=== PATIENT | female | born 1990 | race Two or more races ===

== ENCOUNTER 2016-06-07 18:38 | Emergency (ER) | payer MEDICAID, OTHER ==
[~2016-06-07] VITALS: Ht 152.4 cm; Wt 82.1 kg
[2016-06-07 19:39] VITALS: BP 128/76
== END 2016-06-07 20:28 | disposition home or self-care (01) ==
LOC: ER 18:58
DX: J02.9 Acute pharyngitis, unspecified (principal); M54.9 Dorsalgia, unspecified; R07.9 Chest pain, unspecified; F17.210 Nicotine dependence, cigarettes, uncomplicated
CPT/HCPCS: 71020

== ENCOUNTER 2017-08-25 03:48 | Emergency (ER) | payer SELFPAY ==
[~2017-08-25] VITALS: Ht 152.4 cm; Wt 79.4 kg
[2017-08-25 07:25] VITALS: BP 119/82
== END 2017-08-25 08:30 | disposition home or self-care (01) ==
LOC: ER 03:54
DX: S93.402A Sprain of unspecified ligament of left ankle, initial encounter (principal); F17.210 Nicotine dependence, cigarettes, uncomplicated; X58.XXXA Exposure to other specified factors, initial encounter; Y93.89 Activity, other specified; Y99.8 Other external cause status; Y92.89 Other specified places as the place of occurrence of the external cause
CPT/HCPCS: 73610